=== PATIENT | male | born 2000 | race Caucasian/White ===

== ENCOUNTER 2022-03-18 18:48 | Emergency (ER) | payer OTHER, MEDICAID ==
[2022-03-18] MEDS ORDERED: Ondansetron 4 MG/2 ML SDV IVPUSH ONE (19:07)
[2022-03-18] MEDS ORDERED: HYDROmorphone 1 MG/ML Syringe IVPUSH ONE ×2 (19:07→20:02)
== END 2022-03-18 22:44 | disposition home or self-care (01) ==
LOC: JP.ED 18:48
DX: S82.452A Displaced comminuted fracture of shaft of left fibula, initial encounter for closed fracture (principal); V86.99XA Unspecified occupant of other special all-terrain or other off-road motor vehicle injured in nontraffic accident, initial encounter; Y92.410 Unspecified street and highway as the place of occurrence of the external cause
CPT/HCPCS: 29505; 36415; 71045; 72170; 73590; 80053; 85025; 96374; 96375; 96376; 99284; 99291; J1170; J2405